=== PATIENT | female | born 1955 | race Caucasian/White ===

== ENCOUNTER 2020-11-15 13:30 | Emergency (ER) | payer MEDICARE | END 2020-11-15 19:08 | disposition home or self-care (01) | LOC: ER1 13:30 | DX: J90 Pleural effusion, not elsewhere classified (principal) | CPT/HCPCS: 71046; 71250; 99285 ==

== ENCOUNTER → 2020-11-15 | Outpatient (CLI) | payer MEDICARE | LOC: US 10:30 → OPSV 10:37 → US 10:37 | DX: J90 Pleural effusion, not elsewhere classified (principal) | CPT/HCPCS: 71046 ==

== ENCOUNTER → 2020-12-18 | Outpatient (CLI) | payer MEDICARE | LOC: EXRD 09:53 | DX: Z00.01 Encounter for general adult medical examination with abnormal findings (principal); R91.8 Other nonspecific abnormal finding of lung field; J90 Pleural effusion, not elsewhere classified | CPT/HCPCS: 71046 ==

== ENCOUNTER → 2021-02-12 | Outpatient (CLI) | payer MEDICARE | LOC: EXRD 08:55 | DX: Z00.00 Encounter for general adult medical examination without abnormal findings (principal); Z95.1 Presence of aortocoronary bypass graft | CPT/HCPCS: 71046 ==

== ENCOUNTER → 2021-04-16 | Outpatient (CLI) | payer MEDICARE | LOC: EXRD 08:15 | DX: Z00.00 Encounter for general adult medical examination without abnormal findings (principal); R91.8 Other nonspecific abnormal finding of lung field | CPT/HCPCS: 71046 ==

== ENCOUNTER → 2021-04-24 | Outpatient (CLI) | payer MEDICARE | LOC: US 08:40 | DX: J90 Pleural effusion, not elsewhere classified (principal) ==

== ENCOUNTER 2021-09-14 11:56 | Emergency (ER) | payer MEDICARE ==
[2021-09-14 13:20] LABS: HEMOGLOBIN 8.6 gm/dl (12.3-15.3); RED BLOOD COUNT 3.29 M/UL (4.00-5.10); WHITE BLOOD COUNT 7.8 K/UL (4.5-11.0)
== END 2021-09-14 14:40 | disposition home or self-care (01) ==
LOC: ER1 11:56
PROVIDERS: Emergency Medicine
DX: D64.9 Anemia, unspecified (principal); N28.9 Disorder of kidney and ureter, unspecified
CPT/HCPCS: 80048; 83735; 85025; 93005; 99284

== ENCOUNTER → 2021-09-17 | Outpatient (CLI) | payer MEDICARE | LOC: EXRD 08:56 | DX: Z00.00 Encounter for general adult medical examination without abnormal findings (principal); J90 Pleural effusion, not elsewhere classified | CPT/HCPCS: 71046 ==

== ENCOUNTER → 2022-02-07 | Outpatient (CLI) | payer MEDICARE | LOC: WCC 07:19 | DX: L97.322 Non-pressure chronic ulcer of left ankle with fat layer exposed (principal); L97.312 Non-pressure chronic ulcer of right ankle with fat layer exposed; I25.10 Atherosclerotic heart disease of native coronary artery without angina pectoris; I10 Essential (primary) hypertension; I73.9 Peripheral vascular disease, unspecified; E11.40 Type 2 diabetes mellitus with diabetic neuropathy, unspecified; E11.622 Type 2 diabetes mellitus with other skin ulcer; E66.01 Morbid (severe) obesity due to excess calories; I25.2 Old myocardial infarction; Z79.4 Long term (current) use of insulin; Z99.81 Dependence on supplemental oxygen; Z95.1 Presence of aortocoronary bypass graft; Z79.01 Long term (current) use of anticoagulants; Z79.02 Long term (current) use of antithrombotics/antiplatelets ==

== ENCOUNTER → 2022-02-14 | Outpatient (CLI) | payer MEDICARE | END | disposition home or self-care (01) | LOC: WCC 07:39 | DX: I87.2 Venous insufficiency (chronic) (peripheral) (principal); L97.822 Non-pressure chronic ulcer of other part of left lower leg with fat layer exposed; L97.812 Non-pressure chronic ulcer of other part of right lower leg with fat layer exposed; I25.10 Atherosclerotic heart disease of native coronary artery without angina pectoris; I10 Essential (primary) hypertension; E11.622 Type 2 diabetes mellitus with other skin ulcer; E11.40 Type 2 diabetes mellitus with diabetic neuropathy, unspecified; E66.01 Morbid (severe) obesity due to excess calories; Z99.81 Dependence on supplemental oxygen; Z95.1 Presence of aortocoronary bypass graft; Z79.4 Long term (current) use of insulin; Z79.01 Long term (current) use of anticoagulants; Z79.899 Other long term (current) drug therapy; Z68.29 Body mass index [BMI] 29.0-29.9, adult ==

== ENCOUNTER → 2022-02-21 | Outpatient (CLI) | payer MEDICARE | LOC: WCC 08:27 | DX: I87.2 Venous insufficiency (chronic) (peripheral) (principal); E11.622 Type 2 diabetes mellitus with other skin ulcer; L97.322 Non-pressure chronic ulcer of left ankle with fat layer exposed; L97.312 Non-pressure chronic ulcer of right ankle with fat layer exposed; I25.10 Atherosclerotic heart disease of native coronary artery without angina pectoris; I10 Essential (primary) hypertension; E11.51 Type 2 diabetes mellitus with diabetic peripheral angiopathy without gangrene; E11.40 Type 2 diabetes mellitus with diabetic neuropathy, unspecified; E66.01 Morbid (severe) obesity due to excess calories; Z99.81 Dependence on supplemental oxygen; Z79.4 Long term (current) use of insulin; Z68.29 Body mass index [BMI] 29.0-29.9, adult ==

== ENCOUNTER → 2022-03-06 | Outpatient (CLI) | payer MEDICARE | LOC: WCC 08:06 | DX: L97.322 Non-pressure chronic ulcer of left ankle with fat layer exposed (principal); L97.312 Non-pressure chronic ulcer of right ankle with fat layer exposed; I25.10 Atherosclerotic heart disease of native coronary artery without angina pectoris; I10 Essential (primary) hypertension; I73.9 Peripheral vascular disease, unspecified; E11.40 Type 2 diabetes mellitus with diabetic neuropathy, unspecified; E11.622 Type 2 diabetes mellitus with other skin ulcer; E66.01 Morbid (severe) obesity due to excess calories; I25.2 Old myocardial infarction; Z79.4 Long term (current) use of insulin; Z99.81 Dependence on supplemental oxygen; Z79.01 Long term (current) use of anticoagulants ==

== ENCOUNTER → 2022-03-21 | Outpatient (CLI) | payer MEDICARE | LOC: WCC 07:13 | DX: I87.2 Venous insufficiency (chronic) (peripheral) (principal); L97.322 Non-pressure chronic ulcer of left ankle with fat layer exposed; L97.312 Non-pressure chronic ulcer of right ankle with fat layer exposed; I25.10 Atherosclerotic heart disease of native coronary artery without angina pectoris; I10 Essential (primary) hypertension; I73.9 Peripheral vascular disease, unspecified; E11.40 Type 2 diabetes mellitus with diabetic neuropathy, unspecified; E11.622 Type 2 diabetes mellitus with other skin ulcer; E66.01 Morbid (severe) obesity due to excess calories; I25.2 Old myocardial infarction; Z79.4 Long term (current) use of insulin; Z99.81 Dependence on supplemental oxygen; Z79.01 Long term (current) use of anticoagulants ==

== ENCOUNTER → 2022-04-04 | Outpatient (CLI) | payer MEDICARE | END | disposition home or self-care (01) | LOC: WCC 07:28 | DX: I87.2 Venous insufficiency (chronic) (peripheral) (principal); L97.829 Non-pressure chronic ulcer of other part of left lower leg with unspecified severity; L97.819 Non-pressure chronic ulcer of other part of right lower leg with unspecified severity; E11.622 Type 2 diabetes mellitus with other skin ulcer; E11.40 Type 2 diabetes mellitus with diabetic neuropathy, unspecified; E11.51 Type 2 diabetes mellitus with diabetic peripheral angiopathy without gangrene; I25.10 Atherosclerotic heart disease of native coronary artery without angina pectoris; I10 Essential (primary) hypertension; E66.01 Morbid (severe) obesity due to excess calories; Z79.4 Long term (current) use of insulin; Z99.81 Dependence on supplemental oxygen; Z68.29 Body mass index [BMI] 29.0-29.9, adult; Z79.01 Long term (current) use of anticoagulants; Z79.899 Other long term (current) drug therapy ==